=== PATIENT | female | born 1965 | race Hispanic/Latino ===

== ENCOUNTER 2018-04-09 22:56 | Emergency (ER) | payer MEDICARE ==
[2018-04-10 00:05] VITALS: BP 150/91
[2018-04-10 00:30] LABS: Basophils # (Auto) 0.1 K/mm3 (0.0-0.1); Basophils % (Auto) 0.5 % (0.0-1.8); Eosinophils # (Auto) 0.3 K/mm3 (0.0-0.4); Eosinophils % (Auto) 2.8 % (0.0-4.3); Hematocrit 41.1 % (30.3-42.9); Hemoglobin 13.9 gm/dl (10.1-14.3); Lymphocytes # (Auto) 2.6 K/mm3 (1.2-5.4); Lymphocytes % (Auto) 22.1 % (13.4-35.0); Mean Corpuscular HGB Conc 34 % (30-34); Mean Corpuscular Hemoglobin 31 pg (28-32); Mean Corpuscular Volume 90 fl (79-97); Monocytes % (Auto) 8.3 % (0.0-7.3); Red Blood Count 4.55 M/mm3 (3.65-5.03); Red Cell Distribution Width 12.7 % (13.2-15.2)
[2018-04-10 00:38] LABS: Platelet Count 173 K/mm3 (140-440)
[2018-04-10 00:59] LABS: Albumin 4.3 g/dL (3.9-5); Calcium 9.1 mg/dL (8.4-10.2)
== END 2018-04-10 10:18 | disposition left against medical advice (07) ==
LOC: ED 22:56
DX: M79.89 Other specified soft tissue disorders (principal); Z53.21 Procedure and treatment not carried out due to patient leaving prior to being seen by health care provider
CPT/HCPCS: 36415; 80053; 83880; 85025

== ENCOUNTER 2018-04-11 05:03 | Emergency (ER) | payer MEDICARE ==
[2018-04-11 07:02] LABS: Basophils % (Auto) 0.6 % (0.0-1.8); Eosinophils # (Auto) 0.2 K/mm3 (0.0-0.4); Eosinophils % (Auto) 2.4 % (0.0-4.3); Hematocrit 38.2 % (30.3-42.9); Lymphocytes % (Auto) 28.2 % (13.4-35.0); Mean Corpuscular HGB Conc 34 % (30-34); Mean Corpuscular Hemoglobin 31 pg (28-32); Mean Corpuscular Volume 91 fl (79-97); Monocytes # (Auto) 0.5 K/mm3 (0.0-0.8); Monocytes % (Auto) 7.1 % (0.0-7.3); Platelet Count 171 K/mm3 (140-440); Red Cell Distribution Width 12.8 % (13.2-15.2)
[2018-04-11 07:14] LABS: Alanine Aminotransferase 29 units/L (7-56); Albumin 3.9 g/dL (3.9-5); BUN/Creatinine Ratio 24; Blood Urea Nitrogen 19 mg/dL (7-17); Calcium 8.6 mg/dL (8.4-10.2); Hemolysis Index 6
[2018-04-11] MEDS ORDERED: ZOFRAN ODT PO ONE (10:35)
[2018-04-11] MEDS ORDERED: NORCO 10/325 PO ONE (10:35)
--- NOTE | 2018-04-11 10:41 | Emergency Department Report ---
Blank Doc - Documentation Documentation: Patient presents to the emergency department via EMS for bilateral leg swelling. Patient states she has a history of DVTs but has not been on blood thinners for quite some time. Patient states that her legs swell and then go down randomly. Patient also complains of being depressed with suicidal ideation but denies a plan. On exam bilateral lower extremities show pitting edema with erythema. Patient has a flat affect. Patient will be transferred to the main ED with a psychiatric evaluation to be done as well.
--- NOTE | 2018-04-11 11:36 | Emergency Department Report ---
ED General Adult HPI - General Chief complaint: Extremity Injury, Lower Stated complaint: BOTH LEGS SWELLING Time Seen by Provider: 04/11/18 10:25 Source: patient, EMS Mode of arrival: Wheelchair Limitations: No Limitations - History of Present Illness Initial comments: Patient is a 52-year-old female presents emergency room with bilateral lower extremity swelling 2 weeks. Patient states that she has a long history of lower extremity edema and has also had a DVT but is not on any anticoagulants at this time. Patient denies chest pain shortness of breath. Patient denies fever chills. Patient states her lower extremities are red and warm to touch. Patient complains of pain in her legs and an 8 out of 10. Patient states it is a burning and sharp sensation. Patient states is nonradiating. Patient states the pain is better with rest and worse with ambulation. Patient states that she has not been able to take care of herself since she is homeless. Patient states she has not seen a doctor many years. Patient states that she is having suicidal thoughts. She states she does have a plan but she does not want to live anymore. Patient states she is having a lot of problem with her depression due to being homeless. -: Gradual Location: lower extremity Severity scale (0 -10): 8 Quality: burning, stabbing Consistency: constant Improves with: rest Worsens with: movement Associated Symptoms: denies: confusion, chest pain, cough, diaphoresis, fever/ chills, headaches, loss of appetite, malaise, nausea/vomiting, rash, seizure, shortness of breath, syncope, weakness Treatments Prior to Arrival: none - Related Data Previous Rx's Medication Instructions Recorded Last Taken Type Sulfamethoxazole/Trimethoprim 1 each PO Q12HR 10 Days #20 tablet 04/11/18 Unknown Rx [Bactrim Ds Tablet] Allergies Allergy/AdvReac Type Severity Reaction Status Date / Time No Known Allergies Allergy Unverified 04/09/18 23:58 ED Review of Systems ROS: Stated complaint: BOTH LEGS SWELLING Other details as noted in HPI Constitutional: denies: chills, fever Eyes: denies: eye pain, eye discharge, vision change ENT: denies: ear pain, throat pain Respiratory: denies: cough, shortness of breath, wheezing Cardiovascular: denies: chest pain, palpitations Endocrine: no symptoms reported Gastrointestinal: denies: abdominal pain, nausea, diarrhea Genitourinary: denies: urgency, dysuria, discharge Musculoskeletal: denies: back pain, joint swelling, arthralgia Skin: denies: rash, lesions Neurological: denies: headache, weakness, paresthesias Psychiatric: depression, suicidal thoughts. denies: anxiety Hematological/Lymphatic: denies: easy bleeding, easy bruising ED Past Medical Hx - Past Medical History Previous Medical History?: Yes Hx Psychiatric Treatment: Yes (dep d/o) - Surgical History Past Surgical History?: Yes Additional Surgical History: C SECTX2, RT knee replacement - Family History Family history: no significant - Social History Smoking Status: Never Smoker Substance Use Type: None - Medications Home Medications: Home Medications Medication Instructions Recorded Confirmed Last Taken Type Sulfamethoxazole/Trimethoprim 1 each PO Q12HR 10 Days #20 tablet 04/11/18 Unknown Rx [Bactrim Ds Tablet] ED Physical Exam - General Limitations: No Limitations General appearance: alert, in no apparent distress - Head Head exam: Present: atraumatic, normocephalic - Eye Eye exam: Present: normal appearance - ENT ENT exam: Present: mucous membranes moist - Neck Neck exam: Present: normal inspection - Respiratory Respiratory exam: Present: normal lung sounds bilaterally. Absent: respiratory distress - Cardiovascular Cardiovascular Exam: Present: regular rate, normal rhythm. Absent: systolic murmur, diastolic murmur, rubs, gallop - GI/Abdominal GI/Abdominal exam: Present: soft, normal bowel sounds - Extremities Exam Extremities exam: Present: pedal edema, other (bilateral lower extremity swelling and redness. Edema is 4+ up to her knees and nonpitting) - Back Exam Back exam: Present: normal inspection - Neurological Exam Neurological exam: Present: alert, oriented X3 - Psychiatric Psychiatric exam: Present: depressed, suicidal ideation - Skin Skin exam: Present: warm, dry, intact, erythema (bilateral lower extremities). Absent: rash ED Course Vital Signs 04/11/18 04/11/18 05:23 10:40 Temperature 97.5 F L Pulse Rate 78 Respiratory 12 22 Rate Blood Pressure 146/87 O2 Sat by Pulse 97 Oximetry - Reevaluation(s) Reevaluation #1: 1013 signed due to suicidal ideations. We will wait to medically clear patient and consult mental health 04/11/18 10:25 Reevaluation #2: Discussed plan of care with patient. Patient agrees with plan of care and will be treated for cellulitis of the lower extremities with oral antibiotics. We' ll give patient first dose here and await for transfer to a psychiatric facility. Patient is medically cleared at this time 04/11/18 15:08 ED Medical Decision Making - Lab Data Result diagrams: 04/11/18 05:51 04/11/18 05:51 - Radiology Data Radiology results: report reviewed CALVIN HERRON Female : 1965 MedRec# [id number] 04/11/18 11:55 - Radiology Dept. Note by BRETT EUGENE Acct Num: [id number] : 1965 Patient Age: 52 BLE VENOUS DUPLEX COMPLETED. VAS LAB PRELIMINARY REPORT; TECHNICALLY DIFFICULT STUDY, DUE TO HABITUS , POSITIONING AND EXTREME EDEMA. NO EVIDENCE OF ACUTE DVT/ SVT NOTED IN VESSELS/SEGMENTS EXAMINED, BLE. UNABLE TO IMAGE RLE DST SFV AND BLE PX-MD PTV's/ PERONEAL V's. PHYSICIANS REPORT TO FOLLOW...(RSK) Initialized on 04/11/18 11:55 - END OF NOTE AP CHEST: HISTORY: Pleural effusion AP view of the chest demonstrates a normal mediastinal and cardiac contour with clear lungs and normal bony and soft tissue structures. IMPRESSION: Unremarkable AP chest. No abnormal pleural fluid is identified. Transcribed By: TTR Dictated By: YANNICK ANTHONY JR, MD Electronically Authenticated By: YANNICK ANTHONY JR, MD Signed Date/Time: 04/11/18 1217 - Medical Decision Making Patient is a 52-year-old female presents to emergency room with the anus and swelling and suicidal ideations. Patient found to have cellulitis of bilateral lower extremity. Patient was placed on antibiotic therapy and await transfer to the appropriate psychiatric facility. Patient is to be seen by mental health. Patient was placed on a 1013. - Differential Diagnosis lower stomach pain. Low swelling. DVT. Cellulitis. Suicidal ideation Critical care attestation.: If time is entered above; I have spent that time in minutes in the direct care of this critically ill patient, excluding procedure time. ED Disposition Clinical Impression: Suicidal ideation, Bilateral lower leg cellulitis, Bilateral lower extremity edema, Bilateral lower extremity pain Disposition: [id number]/TX-[id number] PSY HOSP/PSY UNIT Is pt being admited?: No Does the pt Need Aspirin: No Condition: Stable Prescriptions: Sulfamethoxazole/Trimethoprim [Bactrim Ds Tablet] 1 each PO Q12HR 10 Days #20 tablet Referrals: PRIMARY CARE, [Primary Care Provider] - 3-5 Days Time of Disposition: 15:06
--- NOTE | 2018-04-11 12:24 | XRay Report ---
AP CHEST: HISTORY: Pleural effusion AP view of the chest demonstrates a normal mediastinal and cardiac contour with clear lungs and normal bony and soft tissue structures. IMPRESSION: Unremarkable AP chest. No abnormal pleural fluid is identified.
[2018-04-11] MEDS: BACTRIM DS PO SCH ×2 (17:00→22:25)
[2018-04-11 18:46] LABS: Bilirubin,Urine NEG (Negative); Blood,Urine MOD (Negative); Color,Urine Yellow (Yellow); Mucus,Urine 1+ /HPF; Protein,Urine <15 mg/dL mg/dL (Negative)
[2018-04-11 18:52] LABS: Benzodiazepines Screen,Urine PRESUMPTIVE NEGATIVE; Methadone Screen,Urine PRESUMPTIVE NEGATIVE; Opiate Screen,Urine PRESUMPTIVE NEGATIVE
[2018-04-11 19:19] LABS: Cannabinoid Screen,Urine PRESUMPTIVE POSITIVE; Cocaine Screen,Urine PRESUMPTIVE POSITIVE
[2018-04-11 19:48] LABS: Amphetamine Screen,Urine PRESUMPTIVE POSITIVE
[2018-04-12] MEDS: BACTRIM DS PO SCH ×2 (09:53→22:01)
[2018-04-12] MEDS: TYLENOL PO PRN ×2 (09:53→17:38)
[2018-04-12] MEDS ORDERED: MOTRIN PO ONE (14:56)
[2018-04-12] MEDS: MOTRIN PO PRN ×2 (15:02→22:01)
--- NOTE | 2018-04-12 15:03 | Consultation ---
History of Present Illness - Reason for Consult Reason for consult: suicidal thoughts - History of Present Psychiatric Illness This is a 52-year-old female with past psychiatric history of major depression now presenting secondary to increasing lower extremity pain secondary to bilateral pedal edema and expression of suicidal thoughts. Exacerbating situation appears to be chronic homelessness and exacerbation of ongoing underlying psychiatric illness with emergence of auditory hallucinations. Currently, patient notes worsening depressive symptoms in the context of persistent homelessness as well as recent comorbid substance use which the patient initially denied. Current symptoms also consist of, persistent low sad moods, social isolation, sense of hopelessness and hallucinations with comorbid suicidal thoughts. Past psychiatric history: Patient reports previous inpatient treatments, but does not recall where. No current outpatient treatment consistently followed by the patient. Current medications: Cymbalta Medical history: History of knee replacement as well as DVT with no anticoagulation therapy currently being given No known drug allergies Social history: Patient currently homeless with limited supportive services. Patient denies history of trauma or abuse. Patient appears to be engaging in persistence substance abuse. Of note, patient abusing cocaine and meth as well as marijuana. Patient was not forthcoming with this information and this was determined secondary to positive UDS. On mental status examination, this 52-year-old female commented in hospital bed wearing hospital gown with visible bilateral pedal edema. Patient was withdrawn with limited eye contact somewhat guarded. Mild psychomotor retardation with pain on ambulation. Mood appeared fairly anxious and apprehensive and depressed dysphoric. Affect was congruent to mood. Speech language was clear coherent. Thought process was logical goal directed with normal associations. Thought content was preoccupied and ruminative his cognitive distortions as well as suicidal thoughts. Patient currently denied auditory or visual hallucinations. Oriented to person place time and situation. Concentration and attention impaired. Memory intact. Insight judgment limited and impulsive. ADLs fair. 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 cocaine abuse Methamphetamine abuse cannabis abuse Rule out major depression versus bipolar disorder and psychotic features Plan: Start Cymbalta 30 mg daily Refer for inpatient psychiatric hospitalization and maintain patient on 1013 as well as suicide precautions Medications and Allergies Allergies Allergy/AdvReac Type Severity Reaction Status Date / Time No Known Allergies Allergy Unverified 04/09/18 23:58 Home Medications Medication Instructions Recorded Confirmed Last Taken Type Sulfamethoxazole/Trimethoprim 1 each PO Q12HR 10 Days #20 tablet 04/11/18 Unknown Rx [Bactrim Ds Tablet] Active Meds: Active Medications Acetaminophen (Tylenol) 650 mg PO Q6H PRN PRN Reason: Pain, Mild (1-3) Last Admin: 04/12/18 09:53 Dose: 650 mg Ibuprofen (Motrin) 200 mg PO Q6H PRN PRN Reason: Pain, Mild (1-3) Trimethoprim/Sulfamethoxazole (Bactrim Ds) 1 each PO Q12HR GAMAL Last Admin: 04/12/18 09:53 Dose: 1 each Mental Status Exam - Vital signs Last Vital Signs Temp 98 F 04/12/18 07:30 Pulse 76 04/12/18 07:30 Resp 18 04/12/18 10:53 BP 160/67 04/12/18 07:30 Pulse Ox 99 04/12/18 07:59 Results Result Diagrams: 04/11/18 05:51 04/11/18 05:51 Abnormal lab results 04/11/18 Range/Units Unknown Urine WBC (Auto) 8.0 H (0.0-6.0) /HPF All other labs normal.
[2018-04-12] MEDS: CYMBALTA PO SCH (16:56)
[2018-04-12] MEDS ORDERED: WATER FOR INJ (PF) ONE (18:48)
[2018-04-12] MEDS ORDERED: GEODON IM ONE ×2 (18:48→18:55)
[2018-04-12] MEDS ORDERED: MOTRIN ONE (21:50)
[2018-04-13] MEDS: BACTRIM DS PO SCH ×2 (09:55→22:00)
[2018-04-13] MEDS: CYMBALTA PO SCH (09:55)
--- NOTE | 2018-04-13 10:36 | Progress Note ---
Subjective - Reason for Consult Consult date: 04/13/18 Reason for consult: Psychiatry Follow-up - Chief Complaint Chief complaint: 52-year-old female presents emergency room with bilateral lower extremity swelling 2 weeks along with SI's. Today the patient is calm and cooperative during the assessment. She stated that she was "really stressed" on admission. She stated being homeless and having relationship issues with her boyfriend. She stated reflecting about lots of things in her life that she want to get better. She stated that she was a patient at [facility] and transitioned to the [facility]. She stated that she would like to return to the program once discharged. She stated, "I am someone and I want to live." She stated that recreational drug use isn't the best option. She denies SI/HI's and AVH's. She denies any side effects of her medication. Mental Status Exam - Vital signs Last Vital Signs Temp 97.4 F L 04/13/18 08:55 Pulse 74 04/13/18 08:55 Resp 18 04/13/18 08:58 BP 145/99 04/13/18 08:55 Pulse Ox 100 04/13/18 08:58 - Exam Narrative exam: MSE: Appearance: calm, cooperative Behavior: regular eye contact Speech: regular rate and tone Mood: "better" Affect: congruent to mood Thought Process: linear Thought Content: denies SI/HI's and AVH's Motor Activity: sitting up in bed Cognition: A/O x 3 Insight: appropriate Judgment: appropriate Assessment and Plan Impression: Substance-induced psychotic DO. Substance-induced mood DO. Substance Use DO (cocaine/amphetamines). Cannabis Use DO. Today the patient is calm and cooperative during the assessment. The patient is no threat to self. DDx: R/O MDD vs Bipolar DO with psychosis Recommendation/Plan: Rescind 1013. The patient will volunteer for [facility] once discharged. Continue Cymbalta 30 mg PO daily for depression. Discussed possible suicidality/medication induced faith with patient reference Cymbalta. Discussed generalized coping skills with patient.
[2018-04-13] MEDS: TYLENOL PO PRN (12:05)
[2018-04-13] MEDS ORDERED: MOTRIN ONE (19:34)
[2018-04-13] MEDS: MOTRIN PO PRN (19:40)
[2018-04-14] MEDS ORDERED: ATIVAN ONE (05:14)
[2018-04-14] MEDS ORDERED: ATIVAN IM ONE (05:28)
[2018-04-14] MEDS: BACTRIM DS PO SCH (10:15)
[2018-04-14] MEDS: CYMBALTA PO SCH (10:15)
--- NOTE | 2018-04-14 11:45 | Progress Note ---
Subjective - Reason for Consult Consult date: 04/14/18 Reason for consult: Psychiatry Follow-up - Chief Complaint Chief complaint: "I am okay" 52-year-old female presents emergency room with bilateral lower extremity swelling 2 weeks along with SI's. Today the patient is calm and cooperative during the assessment. She look forward to the PHP with [facility]. She denies SI/HI's and AVH's. She denies any side effects of her medication. 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 Substance-induced mood DO. Substance Use DO (cocaine/amphetamines). Cannabis Use DO. Today the patient is calm and cooperative during the assessment. The patient is no threat to self. DDx: R/O MDD vs Bipolar DO with psychosis Recommendation/Plan: The patient will volunteer for [facility] once discharged. Continue Cymbalta 30 mg PO daily for depression. Discussed possible suicidality/ medication induced faith with patient reference Cymbalta. Discussed generalized coping skills with patient.
[2018-04-14 12:12] VITALS: BP 155/76
== END 2018-04-14 12:11 | disposition home or self-care (01) ==
LOC: ED 05:03
DX: L03.115 Cellulitis of right lower limb (principal); L03.116 Cellulitis of left lower limb; R45.851 Suicidal ideations; F32.9 Major depressive disorder, single episode, unspecified; Z96.651 Presence of right artificial knee joint; Z79.899 Other long term (current) drug therapy
CPT/HCPCS: 36415; 71045; 80053; 80307; 81001; 83690; 83880; 85025; 85379; 93970; 96372; 99285; G0480; J2060; J3486; 80320; Q0162

== ENCOUNTER 2019-02-15 08:37 | Emergency (ER) | payer MEDICARE ==
[2019-02-15 08:54] VITALS: BP 123/74
--- NOTE | 2019-02-15 09:21 | Emergency Department Report ---
ED Extremity Problem HPI - General Chief complaint: Extremity Injury, Lower Stated complaint: R LEG SWOLLEN/PAIN Time Seen by Provider: 02/15/19 09:07 Source: patient Mode of arrival: Wheelchair Limitations: Physical Limitation - History of Present Illness Initial comments: This is a 53-year-old female here report that this she has right leg swelling an d pain for 2 days. Patient reports that she has a history of blood clots she has been aging years old and that the first time she had that she was told that it was from control pill at 19 years old now she is a 63 and she has not taken control for a long time she gets recurrent clots. She said she could not remember what leg clot within to think he was in the right and that she has a history of IVC filter placed years ago. Denies any shortness of breath, chest pain, nausea vomiting, fever or chills. She reports pain to bilateral lower extremity bratwurst and right at 10/10 achy and sharp pain from distal leg to proximal thigh area. She is also reporting that she is having re dness which has happened before to her right leg and also to her left leg and this she has some significant looks like a rash on her leg she has had in the past. Patient denies any vascular disease that she knows of or any clotting disorder. Denies any loss of sensation to extremities. She does not have a primary care physician at present because she says she was homeless for a while but now she has insurance she is able to get a primary care physician. She has not taken any medication and she said she was placed on PRADAXA and passed for blood clot but she stopped taking it this was obviously instructed by . Denies any history of heart attack or clogged arteries in her heart. Complaint: extremity pain, extremity swelling Onset/Timin -: days(s) Location: right, lower extremity History of Same: Yes -: Yes arthralgia, No fever, No associated dyspnea, No associated chest pain Radiation: none Severity scale (0 -10): 10 Quality: aching, sharp Consistency: constant Improves with: nothing, medication Worsens with: weight bearing, walking Associated Symptoms: arthralgias, other (reports redness and swelling to right lower extremity with rash to bilateral lower extremity). denies: chest pain, shortness of breath, fever, myalgias - Related Data Previous Rx's Medication Instructions Recorded Last Taken Type Sulfamethoxazole/Trimethoprim 1 each PO Q12HR 10 Days #20 tablet 04/11/18 Unknown Rx [Bactrim Ds Tablet] DULoxetine [Cymbalta] 30 mg PO DAILY #30 capsule 04/14/18 Unknown Rx Acetaminophen/Codeine [Tylenol 1 tab PO Q6H PRN #12 tab 02/15/19 Unknown Rx /Codeine # 3 tab] Clindamycin [Clindamycin CAP] 300 mg PO Q8H 10 Days #30 cap 02/15/19 Unknown Rx Clopidogrel [Plavix] 75 mg PO QDAY 30 Days #30 tablet 02/15/19 Unknown Rx Triamcinolone 0.1% [Kenalog 0.1% 1 applic TP TID 2 Days #1 tube 02/15/19 Unknown Rx CREAM] Allergies Allergy/AdvReac Type Severity Reaction Status Date / Time No Known Allergies Allergy Unverified 04/09/18 23:58 ED Review of Systems ROS: Stated complaint: R LEG SWOLLEN/PAIN Other details as noted in HPI Constitutional: denies: chills, fever Respiratory: denies: cough, shortness of breath, wheezing Cardiovascular: denies: chest pain, palpitations, dyspnea on exertion, orthopnea, edema, syncope Gastrointestinal: denies: abdominal pain, nausea, vomiting, diarrhea, hematemesis, melena, hematochezia Genitourinary: denies: dysuria, hematuria Musculoskeletal: joint swelling, arthralgia. denies: back pain, myalgia Skin: rash, change in color Neurological: abnormal gait. denies: headache, weakness, numbness, paresthesias, confusion, vertigo Hematological/Lymphatic: denies: easy bleeding, easy bruising, swollen glands ED Past Medical Hx - Past Medical History Previous Medical History?: Yes Hx Psychiatric Treatment: Yes (dep d/o) Additional medical history: History of blood clots in lower extremity. History of IVC filter placed - Surgical History Past Surgical History?: Yes Additional Surgical History: C SECTX2, RT knee replacement. IVC filter - Family History Family history: hypertension - Social History Smoking Status: Never Smoker Substance Use Type: None - Medications Home Medications: Home Medications Medication Instructions Recorded Confirmed Last Taken Type Sulfamethoxazole/Trimethoprim 1 each PO Q12HR 10 Days #20 tablet 04/11/18 Unknown Rx [Bactrim Ds Tablet] DULoxetine [Cymbalta] 30 mg PO DAILY #30 capsule 04/14/18 Unknown Rx Acetaminophen/Codeine [Tylenol 1 tab PO Q6H PRN #12 tab 02/15/19 Unknown Rx /Codeine # 3 tab] Clindamycin [Clindamycin CAP] 300 mg PO Q8H 10 Days #30 cap 02/15/19 Unknown Rx Clopidogrel [Plavix] 75 mg PO QDAY 30 Days #30 tablet 02/15/19 Unknown Rx Triamcinolone 0.1% [Kenalog 0.1% 1 applic TP TID 2 Days #1 tube 02/15/19 U nknown Rx CREAM] ED Physical Exam - General Limitations: Physical Limitation General appearance: alert, in no apparent distress - Head Head exam: Present: atraumatic, normocephalic - Eye Eye exam: Present: normal appearance, PERRL, EOMI Pupils: Present: normal accommodation - ENT ENT exam: Present: normal exam, normal orophraynx, mucous membranes moist, TM's normal bilaterally, normal external ear exam - Neck Neck exam: Present: normal inspection, full ROM, other (no C-spine tenderness). Absent: tenderness, lymphadenopathy - Respiratory Respiratory exam: Present: normal lung sounds bilaterally. Absent: respiratory distress, wheezes, rales, rhonchi, stridor, chest wall tenderness, accessory muscle use, decreased breath sounds, prolonged expiratory - Cardiovascular Cardiovascular Exam: Present: regular rate, normal rhythm, normal heart sounds - GI/Abdominal GI/Abdominal exam: Present: soft. Absent: distended, tenderness, guarding, rebound, rigid, normal bowel sounds, diminished bowel sounds, hyperactive bowel sounds, hypoactive bowel sounds, organomegaly, mass, bruit, pulsatile mass, hernia - Extremities Exam Extremities exam: Present: tenderness (right lower extremity), normal capillary refill, joint swelling (right lower extremity), other (pedal pulses are 1+ bilaterally and popliteal pulse bilaterally is a 2+.). Absent: normal inspectio n, full ROM (Limited range of motion due to pain and swelling), pedal edema, calf tenderness - Expanded Lower Extremity Exam Right Hip exam: Present: normal inspection, full ROM, pelvic stability. Absent: tenderness, swelling, abrasion, laceration, ecchymosis, deformity, crepidus, dislocation, erythema, external rotation, internal rotation, shortening Upper Leg exam: Present: tenderness (tenderness distally), swelling, erythema. Absent: normal inspection, full ROM (Limited range of motion to right lower extremity G to pain and swelling), abrasion, laceration, ecchymosis, deformity, crepidus, dislocation Knee exam: Present: tenderness, swelling, erythema, full knee extension. Absent: normal inspection, full ROM (Limited range of motion due to pain to lower extremity), abrasion, laceration, ecchymosis, deformity, crepidus, dislocation, effusion Lower Leg exam: Present: tenderness, swelling, erythema. Absent: normal inspection, full ROM (Limited range of motion due to pain and swelling), abrasion, laceration, ecchymosis, deformity, crepidus, dislocation, palpable cord, Esequiel's sign Ankle exam: Present: normal inspection, full ROM, swelling. Absent: tenderness, abrasion, laceration, ecchymosis, deformity, crepidus, dislocation, erythema Foot/Toe exam: Present: normal inspection, full ROM. Absent: tenderness, swelling, abrasion, deformity, crepidus, dislocation, erythema, amputation, puncture wound, foreign body, calcaneal tenderness, tenderness at base of 5th metatarsal, nail avulsion, subungual hematoma Neuro vascular tendon exam: Present: pulse deficit (1+ pedal pulses ), abnormal cap refill (capillary refill is less than minimally greater than 2 seconds), motor deficit (patient with pain and decreased range of motion to the right lower extremity due to pain and swelling). Absent: sensory deficit, tendon deficit, extremity cold to touch, pallor, decreased fine/light touch, foot drop, peroneal nerve deficit (nerves the feet with normal sensation), significant pain with passive ROM of distal joint (A) Gait: Positive: antalgic - Back Exam Back exam: Present: normal inspection, full ROM, other (patient is in a wheelchair but she is able to ambulate this with him. Due to lower extremity pain). Absent: tenderness, CVA tenderness (R), CVA tenderness (L), muscle spasm (E), paraspinal tenderness, vertebral tenderness, rash noted - Neurological Exam Neurological exam: Present: alert, oriented X3, abnormal gait (due to right lower extremity pain and swelling), reflexes normal - Psychiatric Psychiatric exam: Present: normal affect, normal mood - Skin Skin exam: Present: warm, intact, rash (rashes noted to anterior bilateral distal legs appear to be subacute and looks like stasis dermatitis.), erythema (right lower extremity erythema with swelling and tenderness). Absent: normal color, cyanosis, diaphoretic, petechiae, pallor, abrasion, ecchymosis ED Course Vital Signs 02/15/19 08:50 Temperature 98.4 F Pulse Rate 92 H Respiratory 18 Rate Blood Pressure 123/74 O2 Sat by Pulse 100 Oximetry - Reevaluation(s) Reevaluation #1: 02/15/19 1:38 Patient remained stable throughout ED course. She was given Tylenol plain 650 mg for leg pain to right side and she refused ibuprofen because she said it is irritating to her stomach. No change and physical findings with focused exam to lower extremities Reevaluation #2: 02/15/19 12:59 Patient is stable at present and radiology report revealed patient with no acute DVT to right leg but she does have superficial venous thrombosis in right greater saphenous vein and chronic appearing DVT and left common femoral vein which is incidental finding. soil conservation technician report that policy for ultrasound to lower extremity is for opposite extremity of some oral site is checked. Patient remained stable without any acute distress. Reevaluation #3: 02/15/19 13:14 Patient received Toradol 30 mg IM prior to discharge instructions. She is awaiting her ride. ED Medical Decision Making - Lab Data Result diagrams: 02/15/19 10:10 02/15/19 10:10 Lab Results 02/15/19 02/15/19 02/15/19 Range/Units 10:10 10:10 10:10 WBC 6.2 (4.5-11.0) K/mm3 RBC 4.31 (3.65-5.03) M/mm3 Hgb 13.5 (10.1-14.3) gm/dl Hct 39.1 (30.3-42.9) % MCV 91 (79-97) fl MCH 31 (28-32) pg MCHC 35 H (30-34) % RDW 12.3 L (13.2-15.2) % Plt Count 139 L (140-440) K/mm3 Lymph % (Auto) 20.9 (13.4-35.0) % [place] % (Auto) 6.9 (0.0-7.3) % Eos % (Auto) 1.9 (0.0-4.3) % Baso % (Auto) 0.5 (0.0-1.8) % Lymph # 1.3 (1.2-5.4) K/mm3 [place] # 0.4 (0.0-0.8) K/mm3 Eos # 0.1 (0.0-0.4) K/mm3 Baso # 0.0 (0.0-0.1) K/mm3 Seg Neutrophils % 69.8 (40.0-70.0) % Seg Neutrophils # 4.3 (1.8-7.7) K/mm3 PT 12.7 (12.2-14.9) Sec. INR 0.98 (0.87-1.13) APTT 28.7 (24.2-36.6) Sec. Sodium 141 (137-145) mmol/L Potassium 3.9 (3.6-5.0) mmol/L Chloride 105.3 (98-107) mmol/L Carbon Dioxide 24 (22-30) mmol/L Anion Gap 16 mmol/L BUN 15 (7-17) mg/dL Creatinine 0.6 L (0.7-1.2) mg/dL Estimated GFR > 60 ml/min BUN/Creatinine Ratio 25 % Glucose 84 (65-100) mg/dL Calcium 8.6 (8.4-10.2) mg/dL - Radiology Data Radiology results: report reviewed Findings [facility] [address] [place] [address] Vascular Lab Report Signed Patient: CALVIN FORBES MR#: [id number] : 1965 Acct:[id number] Age/Sex: 53 / F ADM Date: 02/15/19 Loc: ED Attending Dr: Doppler ultrasound dictated radiologist report reviewed by myself. Please see Ordering Physician: ALEX LAL Date of Service: 02/15/19 Procedure(s): VL venous duplex LE RT Accession Number(s): [id number] cc: ALEX LAL PROCEDURE: VL VENOUS DUPLEX LE RT TECHNIQUE: Duplex Doppler sonography of the right leg. Melendrez scale imaging with and without compression, spectral waveform analysis with and without augmentation, and color flow Doppler were employed. HISTORY: RLE red/swollen h/o blood clot COMPARISONS: None FINDINGS: Real-time ultrasound of the right leg was performed using grayscale and color Doppler images. Limited examination of the left leg was also performed. Comparison is made to the prior examination of April 11, 2018. On the right, no evidence of deep venous thrombus is seen in the common femoral vein, superficial femoral vein, popliteal vein or posterior tibial vein. There is superficial venous thrombus in the right greater saphenous vein. On the left, there is chronic-appearing deep venous thrombus in the left common femoral vein. No DVT is seen in the left superficial femoral vein or deep femoral vein. 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 She states she is concerned because she has had clotted bypass with IVC filter placed but denies any clots or lungs. Patient was given Tylenol 650 mg emergency room to manage pain and her pain is now 3/10. Doppler ultrasound to right lower extremity show SVT to greater saphenous vein and chronic appearing DVT to left femoral vein area. Patient CBC was stable except she is minimal decrease in platelet 139 and a crit of 140. PT PTT and INR are stable and chemistry are stable. Patient with atelectasis the primary care office she does not have one at present I discussed with her her ultrasound and lab report and told that she will need to follow up with a vascular specialist and also primary care doctor and she voiced understanding. Patient will be referred to [facility], outpatient primary care physician on-call and vascular doctor material controller. She voiced understanding and and also voices understanding that she will need to take Plavix as prescribed and I will give her 30 day supply and she received her first dose in the emergency room. I also told her that she will be placed on clindamycin for cellulitis right lower extremity and steroid ointment for stasis dermatitis to bilateral distal legs. Patient voiced understanding of need to follow-up and take medication and I also educated her on all medication prescribed and she voiced understanding. Patient is stable throughout ED and pain is controlled - Differential Diagnosis DVT versus SVT. Cellulitis, stasis dermatitis Critical care attestation.: If time is entered above; I have spent that time in minutes in the direct care of this critically ill patient, excluding procedure time. ED Disposition Clinical Impression: Venous stasis dermatitis of right lower extremity, Swelling of right lower extremity, Cellulitis of right lower extremity, Arthralgia of right lower leg Saphenous vein thrombophlebitis Qualifiers: Laterality: right Qualified Code(s): I80.01 - Phlebitis and thrombophlebitis of superficial vessels of right lower extremity Disposition: - TO HOME OR SELFCARE Is pt being admited?: No Does the pt Need Aspirin: No Condition: Stable Instructions: Arthralgia (ED), Cellulitis (ED), Superficial Thrombophlebitis (ED), Stasis Dermatitis (ED), Clopidogrel (By mouth), Clindamycin (By mouth), Acetaminophen/Codeine (By mouth), Triamcinolone (On the skin) Additional Instructions: Please follow up with vascular doctor and primary care physicians as instructed. Take Plavix once daily as prescribed You can take Tylenol No. 3 one tablet every 6 or as needed for pain. Please see chart for operating room machine while taking this medication as it causes drowsiness If symptoms worsen, please return to the emergency room DEREK Take clindamycin for cellulitis to lower extremities Please apply triamcinolone ointment to bilateral lower extremity legs for dermatitis Please see discharge instruction given. Please see discharge Diagnosis and also medication Prescriptions: Clindamycin [Clindamycin CAP] 300 mg PO Q8H 10 Days #30 cap Triamcinolone 0.1% [Kenalog 0.1% CREAM] 1 applic TP TID 2 Days #1 tube Clopidogrel [Plavix] 75 mg PO QDAY 30 Days #30 tablet Acetaminophen/Codeine [Tylenol /Codeine # 3 tab] 1 tab PO Q6H PRN #12 tab PRN Reason: pain to lower extremity Referrals: GEOVANNA POWERS MD [Primary Care Provider] - 02/17/19 [facility] [Outside] - 02/17/19 DARLENE PARRISH MD [Staff Physician] - 02/17/19 Forms: Work/School Release Form(ED)
[2019-02-15] MEDS ORDERED: IBUPROFEN PO ONE (09:26)
[2019-02-15] MEDS ORDERED: TYLENOL PO ONE (09:45)
[2019-02-15] MEDS ORDERED: TYLENOL ONE (09:47)
[2019-02-15 10:36] LABS: Basophils % (Auto) 0.5 % (0.0-1.8); Eosinophils # (Auto) 0.1 K/mm3 (0.0-0.4); Eosinophils % (Auto) 1.9 % (0.0-4.3); Hematocrit 39.1 % (30.3-42.9); Hemoglobin 13.5 gm/dl (10.1-14.3); Lymphocytes # (Auto) 1.3 K/mm3 (1.2-5.4); Lymphocytes % (Auto) 20.9 % (13.4-35.0); Mean Corpuscular HGB Conc 35 % (30-34); Mean Corpuscular Volume 91 fl (79-97); Monocytes # (Auto) 0.4 K/mm3 (0.0-0.8); Monocytes % (Auto) 6.9 % (0.0-7.3); Platelet Count 139 K/mm3 (140-440); Red Blood Count 4.31 M/mm3 (3.65-5.03); Red Cell Distribution Width 12.3 % (13.2-15.2)
[2019-02-15 10:48] LABS: INR 0.98 (0.87-1.13)
[2019-02-15 10:50] LABS: Partial Thromboplastin Time 28.7 Sec. (24.2-36.6)
[2019-02-15 11:08] LABS: BUN/Creatinine Ratio 25; Blood Urea Nitrogen 15 mg/dL (7-17); Calcium 8.6 mg/dL (8.4-10.2); Hemolysis Index 20
--- NOTE | 2019-02-15 11:45 | Vascular Lab Report ---
PROCEDURE: VL VENOUS DUPLEX LE RT TECHNIQUE: Duplex Doppler sonography of the right leg. Melendrez scale imaging with and without compressi on, spectral waveform analysis with and without augmentation, and color flow Doppler were employed. HISTORY: RLE red/swollen h/o blood clot COMPARISONS: None FINDINGS: Real-time ultrasound of the right leg was performed using grayscale and color Doppler image s. Limited examination of the left leg was also performed. Comparison is made to the prior examinatio n of April 11, 2018. On the right, no evidence of deep venous thrombus is seen in the common femoral vein, superficial fem oral vein, popliteal vein or posterior tibial vein. There is superficial venous thrombus in the right greater saphenous vein. On the left, there is chronic-appearing deep venous thrombus in the left common femoral vein. No DVT is seen in the left superficial femoral vein or deep femoral vein. IMPRESSION: No acute deep venous systems in the right leg Superficial venous thrombus in the right greater saphenous vein Chronic-appearing DVT in left common femoral vein This document is electronically signed by Bryan Nunez MD., February 15 2019 11:42:58 AM ET
[2019-02-15] MEDS ORDERED: CLEOCIN PO ONE (12:32)
[2019-02-15] MEDS ORDERED: PLAVIX PO ONE (12:34)
[2019-02-15] MEDS ORDERED: TORADOL IM ONE (13:12)
[2019-02-15] MEDS ORDERED: TORADOL ONE (13:15)
== END 2019-02-15 13:49 | disposition home or self-care (01) ==
LOC: ED 08:37
DX: I80.01 Phlebitis and thrombophlebitis of superficial vessels of right lower extremity (principal); L03.115 Cellulitis of right lower limb; I87.2 Venous insufficiency (chronic) (peripheral); F32.9 Major depressive disorder, single episode, unspecified; Z96.651 Presence of right artificial knee joint; Z79.899 Other long term (current) drug therapy
CPT/HCPCS: 36415; 80048; 85025; 85610; 85730; 93971; 96372; 99284; J1885

== ENCOUNTER 2019-02-19 16:25 | Emergency (ER) | payer MEDICARE ==
[2019-02-19 17:46] LABS: Basophils % (Auto) 0.6 % (0.0-1.8); Eosinophils # (Auto) 0.3 K/mm3 (0.0-0.4); Eosinophils % (Auto) 4.7 % (0.0-4.3); Hematocrit 43.8 % (30.3-42.9); Hemoglobin 14.4 gm/dl (10.1-14.3); Lymphocytes # (Auto) 1.5 K/mm3 (1.2-5.4); Lymphocytes % (Auto) 22.3 % (13.4-35.0); Mean Corpuscular HGB Conc 33 % (30-34); Mean Corpuscular Volume 93 fl (79-97); Monocytes # (Auto) 0.5 K/mm3 (0.0-0.8); Monocytes % (Auto) 7.1 % (0.0-7.3); Platelet Count 164 K/mm3 (140-440); Red Blood Count 4.73 M/mm3 (3.65-5.03); Red Cell Distribution Width 12.3 % (13.2-15.2)
[2019-02-19 18:08] LABS: BUN/Creatinine Ratio 24; Blood Urea Nitrogen 17 mg/dL (7-17); Calcium 9.3 mg/dL (8.4-10.2); Hemolysis Index 33
--- NOTE | 2019-02-19 18:44 | XRay Report ---
PROCEDURE: XR CHEST ROUTINE 2V TECHNIQUE: PA and lateral chest radiographs were obtained. HISTORY: Chest Pain COMPARISONS: None. FINDINGS: Heart: Normal. Mediastinum/Vessels: Normal. Lungs/Pleural space: Normal. Bony thorax: No acute osseous abnormality. IMPRESSION: Normal examination. This document is electronically signed by Harman Leavitt MD., February 19 2019 06:42:24 PM ET
--- NOTE | 2019-02-19 18:45 | Emergency Department Report ---
ED Abdominal Pain HPI - General Chief Complaint: Abdominal Pain Stated Complaint: ABD PAIN Time Seen by Provider: 02/19/19 17:16 Source: patient Mode of arrival: Wheelchair Limitations: No Limitations - History of Present Illness Initial Comments: Patient is a 53-year-old female that presents emergency room with complaints of abdominal pain 2 days. Patient states it is her left upper quadrant and underneath her left breast. Patient states the pain is not radiating. Patient denies nausea/vomiting/diarrhea. Patient states the pain is worsening. Patient states the pain is not attempted. Patient states the pain is better with rest and worse with eating and movement. Patient denies chest pain shortness of breath. Patient denies fever and chills. 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 denies: nausea, vomiting, diarrhea, chills, constipation, dysuria, hematemesis, hematochezia, melena, hematuria, anorexia, syncope - Related Data Previous Rx's Medication Instructions Recorded Last Taken Type Sulfamethoxazole/Trimethoprim 1 each PO Q12HR 10 Days #20 tablet 04/11/18 Unknown Rx [Bactrim Ds Tablet] DULoxetine [Cymbalta] 30 mg PO DAILY #30 capsule 04/14/18 Unknown Rx Acetaminophen/Codeine [Tylenol 1 tab PO Q6H PRN #12 tab 02/15/19 Unknown Rx /Codeine # 3 tab] Clindamycin [Clindamycin CAP] 300 mg PO Q8H 10 Days #30 cap 02/15/19 Unknown Rx Clopidogrel [Plavix] 75 mg PO QDAY 30 Days #30 tablet 02/15/19 Unknown Rx Triamcinolone 0.1% [Kenalog 0.1% 1 applic TP TID 2 Days #1 tube 02/15/19 Unknown Rx CREAM] Dexlansoprazole [Dexilant] 60 mg PO QDAY 30 Days #30 cap. 02/19/19 Unknown Rx Allergies Allergy/AdvReac Type Severity Reaction Status Date / Time No Known Allergies Allergy Unverified 04/09/18 23:58 ED Review of Systems ROS: Stated complaint: ABD PAIN Other details as noted in HPI Constitutional: denies: chills, fever Eyes: denies: eye pain, eye discharge, vision change ENT: denies: ear pain, throat pain Respiratory: denies: cough, shortness of breath, wheezing Cardiovascular: denies: chest pain, palpitations Endocrine: no symptoms reported Gastrointestinal: abdominal pain. denies: nausea, diarrhea Genitourinary: denies: urgency, dysuria, discharge Musculoskeletal: denies: back pain, joint swelling, arthralgia Skin: denies: rash, lesions Neurological: denies: headache, weakness, paresthesias Psychiatric: denies: anxiety, depression Hematological/Lymphatic: denies: easy bleeding, easy bruising ED Past Medical Hx - Past Medical History Previous Medical History?: Yes Hx Psychiatric Treatment: Yes (dep d/o) Additional medical history: History of blood clots in lower extremity. History of IVC filter placed - Surgical History Past Surgical History?: Yes Additional Surgical History: C SECTX2, RT knee replacement. IVC filter - Family History Family history: no significant - Social History Smoking Status: Never Smoker Substance Use Type: None - Medications Home Medications: Home Medications Medication Instructions Recorded Confirmed Last Taken Type Sulfamethoxazole/Trimethoprim 1 each PO Q12HR 10 Days #20 tablet 04/11/18 Unknown Rx [Bactrim Ds Tablet] DULoxetine [Cymbalta] 30 mg PO DAILY #30 capsule 04/14/18 Unknown Rx Acetaminophen/Codeine [Tylenol 1 tab PO Q6H PRN #12 tab 02/15/19 Unknown Rx /Codeine # 3 tab] Clindamycin [Clindamycin CAP] 300 mg PO Q8H 10 Days #30 cap 02/15/19 Unknown Rx Clopidogrel [Plavix] 75 mg PO QDAY 30 Days #30 tablet 02/15/19 Unknown Rx Triamcinolone 0.1% [Kenalog 0.1% 1 applic TP TID 2 Days #1 tube 02/15/19 Unknown Rx CREAM] Dexlansoprazole [Dexilant] 60 mg PO QDAY 30 Days #30 cap. 02/19/19 Unknown Rx ED Physical Exam - General Limitations: No Limitations General appearance: alert, in no apparent distress - Head Head exam: Present: atraumatic, normocephalic - Eye Eye exam: Present: normal appearance - ENT ENT exam: Present: mucous membranes moist - Neck Neck exam: Present: normal inspection - Respiratory Respiratory exam: Present: normal lung sounds bilaterally. Absent: respiratory distress - Cardiovascular Cardiovascular Exam: Present: regular rate, normal rhythm. Absent: systolic murmur, diastolic murmur, rubs, gallop - GI/Abdominal GI/Abdominal exam: Present: soft, normal bowel sounds - Extremities Exam Extremities exam: Present: normal inspection - Back Exam Back exam: Present: normal inspection - Neurological Exam Neurological exam: Present: alert, oriented X3 - Psychiatric Psychiatric exam: Present: normal affect, normal mood - Skin Skin exam: Present: warm, dry, intact, normal color. Absent: rash ED Course Vital Signs 02/19/19 02/19/19 02/19/19 17:14 18:57 19:01 Temperature 97.7 F Pulse Rate 74 92 H Respiratory 20 16 Rate Blood Pressure 163/103 133/93 140/89 Blood Pressure [Left] O2 Sat by Pulse 100 100 Oximetry 02/19/19 02/19/19 02/19/19 19:15 20:01 20:37 Temperature 98.3 F Pulse Rate 78 89 94 H Respiratory 14 13 16 Rate Blood Pressure 140/89 140/89 Blood Pressure 156/87 [Left] O2 Sat by Pulse 100 100 Oximetry 02/19/19 02/19/19 02/19/19 21:00 21:30 22:31 Temperature Pulse Rate 91 H 86 Respiratory 21 16 Rate Blood Pressure 141/101 129/81 137/107 Blood Pressure [Left] O2 Sat by Pulse 97 100 Oximetry 02/19/19 23:01 Temperature Pulse Rate Respiratory Rate Blood Pressure 141/90 Blood Pressure [Left] O2 Sat by Pulse Oximetry - Reevaluation(s) Reevaluation #1: Patient still denies of chest pain. Patient states having really bad abdominal pain. Patient tolerated oral IV dye. She will be given Zofran and Dilaudid. 02/19/19 20:15 Patient states her pain is better. Discussed all results with patient. Patient is stable for discharge. Patient will be discharged home. Patient agrees to plan of care. Patient given discharge instructions. Patient voiced understanding of discharge instructions. 02/19/19 23:15 Prior to discharge I will discuss CT findings with vascular surgery. 02/19/19 23:25 - Consultations Consultation #1: Vascular surgery paged 02/19/19 23:[address] Andino. Dr. Andino States the patient stable for discharge and discharged home and can follow up with him as an outpatient 02/19/19 23:33 ED Medical Decision Making - Lab Data Result diagrams: 02/19/19 17:34 02/19/19 17:34 - EKG Data -: EKG Interpreted by Me EKG shows normal: sinus rhythm, axis, intervals, QRS complexes, ST-T waves Rate: normal - Radiology Data Radiology results: report reviewed PROCEDURE: CT ABDOMEN PELVIS W CON TECHNIQUE: Computerized axial tomography of the abdomen and pelvis was performed after the administration of IV iodinated nonionic contrast. CT DOSE LENGTH PRODUCT: 3429.7 mGycm HISTORY: abd pain COMPARISONS: None . FINDINGS: Visualized lower thorax: No significant abnormality. Liver: Normal size and attenuation. Spleen: Normal size and attenuation. Gallbladder and biliary system: Normal. Pancreas: Normal. Adrenals: Normal. Kidneys: Normal. GI tract: No appendiceal inflammation. No bowel obstruction or inflammation. There is a moderate- sized hiatal hernia present. Lymph nodes and mesentery: Normal. Vasculature: IVC filter is present. There are bilateral common iliac vein stents, with internal calcification, which can be seen with chronic thrombus. The lumen of these vessels is not d iagnostically evaluated in this phase of contrast enhancement. Prominent vessels are seen in the anterior abdominal wall subcutaneous tissues. Bladder: Normal. Reproductive organs: Intrauterine device is present in the central uterus. Peritoneum: No free fluid. Musculoskeletal structures: No significant abnormality. Other: None. IMPRESSION: Moderate-sized hiatal hernia. No bowel obstruction or inflammation. IVC filter is present. There are bilateral common iliac vein stents, with internal calcification, which can be seen with chronic thrombus. The lumen of these vessels is not diagnostically evaluated in this phase of contrast enhancement - Medical Decision Making Patient is prima Emergency room with epigastric and left upper quadrant pain. Patient never complained of chest pain. Patient's CT negative. Patient's labs unremarkable. Patient's findings consistent with gastritis. Patient given discharge instructions. I discussed vascular findings on CT of abdomen and vascular surgery states the patient is stable for discharge from their standpoint can follow-up as an outpatient. Patient has been instructed to continue her Peridex and Plavix. - Differential Diagnosis abdominal pain. Gastritis. Pancreatitis Critical care attestation.: If time is entered above; I have spent that time in minutes in the direct care of this critically ill patient, excluding procedure time. ED Disposition Clinical Impression: Abdominal pain Qualifiers: Abdominal location: upper abdomen, unspecified Qualified Code(s): R10.10 - Upper abdominal pain, unspecified Gastritis Qualifiers: Gastritis type: unspecified gastritis Chronicity: acute Gastritis bleeding: without bleeding Qualified Code(s): K29.00 - Acute gastritis without bleeding Disposition: TO HOME OR SELFCARE Is pt being admited?: No Does the pt Need Aspirin: No Condition: Stable Instructions: Diet for Ulcers and Gastritis (ED), Gastroesophageal Reflux Disease (ED), Abdominal Pain (ED) Additional Instructions: Patient to follow-up with primary care in 2-3 days. Patient to eat a GERD diet. Patient to follow up with vascular surgery in 2-3 days. Patient to follow-up with GI in 2-3 days. Patient to return to ER if condition worsens. Patient to take meds as directed. Patient to increase water. Patient to rest. Patient to continue all meds. Prescriptions: Dexlansoprazole [Dexilant] 60 mg PO QDAY 30 Days #30 cap. Referrals: JOSÉ LUIS ANDINO MD [Staff Physician] - 2-3 Days [facility] LUCIANA LADD MD [Primary Care Provider] - 2-3 Days MYRA LANIER MD [Staff Physician] - 2-3 Days Time of Disposition: 23:37
--- NOTE | 2019-02-19 19:55 | Emergency Department Report ---
Blank Doc - Documentation Documentation: 53 y o female presents with upper abdominal pain
[2019-02-19] MEDS ORDERED: ZOFRAN IV ONE (20:16)
[2019-02-19] MEDS ORDERED: DILAUDID IV ONE (20:16)
--- NOTE | 2019-02-19 22:22 | Cat Scan Report ---
PROCEDURE: CT ABDOMEN PELVIS W CON TECHNIQUE: Computerized axial tomography of the abdomen and pelvis was performed after the administr ation of IV iodinated nonionic contrast. CT DOSE LENGTH PRODUCT: 3429.7 mGycm HISTORY: abd pain COMPARISONS: None . FINDINGS: Visualized lower thorax: No significant abnormality. Liver: Normal size and attenuation. Spleen: Normal size and attenuation. Gallbladder and biliary system: Normal. Pancreas: Normal. Adrenals: Normal. Kidneys: Normal. GI tract: No appendiceal inflammation. No bowel obstruction or inflammation. There is a moderate-siz ed hiatal hernia present. Lymph nodes and mesentery: Normal. Vasculature: IVC filter is present. There are bilateral common iliac vein stents, with internal calci fication, which can be seen with chronic thrombus. The lumen of these vessels is not diagnostically e valuated in this phase of contrast enhancement. Prominent vessels are seen in the anterior abdominal wall subcutaneous tissues. Bladder: Normal. Reproductive organs: Intrauterine device is present in the central uterus. Peritoneum: No free fluid. Musculoskeletal structures: No significant abnormality. Other: None. IMPRESSION: Moderate-sized hiatal hernia. No bowel obstruction or inflammation. IVC filter is present. There are bilateral common iliac vein stents, with internal calcification, wh ich can be seen with chronic thrombus. The lumen of these vessels is not diagnostically evaluated in this phase of contrast enhancement This document is electronically signed by Payal Johnston MD., February 19 2019 10:20:21 PM ET
[2019-02-20 00:02] VITALS: BP 141/90
== END 2019-02-19 23:55 | disposition home or self-care (01) ==
LOC: ED 16:25
DX: K29.00 Acute gastritis without bleeding (principal); F32.9 Major depressive disorder, single episode, unspecified; Z79.899 Other long term (current) drug therapy
CPT/HCPCS: 36415; 71046; 74177; 80048; 83690; 84484; 85025; 93005; 93010; 96374; 96375; 99284; J1170; J2405; Q9967